=== PATIENT | female | born 1945 ===

== ENCOUNTER 2024-10-27 16:41 | Outpatient (REF) | payer SELFPAY ==
[2024-10-27 17:19] LABS: C Reactive Protein <0.50 mg/dL (<=0.50); Creatine Kinase 198 U/L (26-192); Estimated GFR (African America 60 (>=60 mL/min/1.73m^2); Estimated GFR (Non-African Ame 49 (>=60 mL/min/1.73m^2)
== END 2024-10-27 16:42 | disposition home or self-care (01) ==
LOC: LAB 16:41
PROVIDERS: Visit Provider Internal Medicine Infectious Disease
DX: T84.69XA Infection and inflammatory reaction due to internal fixation device of other site, initial encounter (principal)
CPT/HCPCS: 36415; 82550; 82565; 86140